=== PATIENT | female | born 1985 | race African-American/Black ===

== ENCOUNTER 2016-07-10 21:22 | Emergency (ER) | payer MEDICAID ==
[~2016-07-10] VITALS: Ht 157.5 cm; Wt 71.0 kg
[~2016-07-10 21:22] MED LIST: ALBUTEROL INHALER
[2016-07-10] MEDS ORDERED: SODIUM CHLORIDE 0.9% 1,000 ML IV ONE (21:37)
[2016-07-10] MEDS ORDERED: METHYLPREDNISOLONE SOD SUCC 125 MG/2 ML VIAL IV STA (21:37)
[2016-07-10] MEDS ORDERED: IPRATROPIUM BROMIDE (0.02%) 0.5MG/2.5ML NEB HHN STA (21:37)
[2016-07-10] MEDS ORDERED: MAGNESIUM 2 G PREMIX 50 ML IV ONE (21:45)
[2016-07-10 21:54] LABS: BASOPHILS % 0.4 % (0.0-2.0); DIFFERENTIAL COMMENT 0; EOSINOPHILS % 3.2 % (0.0-5.0); HEMATOCRIT. 38.4 % (36.0-48.0); HEMOGLOBIN. 12.4 g/dL (12.0-16.0); LYMPHOCYTES % 62.7 % (20.0-50.0); MEAN CORPUSCULAR HEMOGLOBIN 25.8 pg (28.0-32.0); MEAN CORPUSCULAR HGB CONC 32.3 g/dL (31.0-37.0); MEAN CORPUSCULAR VOLUME 79.8 fL (81.0-99.0); MEAN PLATELET VOLUME 8.2 fl (7.4-10.4); NEUTROPHILS % 27.7 % (40.0-76.0); PLATELET 217 x1000/uL (130-400); RED BLOOD CELL COUNT 4.81 mill/uL (4.2-5.4); RED CELL DISTRIBUTION WIDTH 14.5 % (11.6-14.6)
[2016-07-10 21:58] LABS: CHLORIDE 103 mEq/L (98-107); INDEX HEMOLYSI 1 (1-3); INDEX ICTERIC 1 (1-4); INDEX LIPEMIC 1 (1-3)
[2016-07-10 22:01] LABS: ALBUMIN 3.6 g/dL (3.4-5.0); ANION GAP 10; CALCIUM 8.6 mg/dL (8.5-10.1); CARBON DIOXIDE 28 mEq/L (21-32); UREA NITROGEN BLOOD 13 mg/dL (7-21)
[2016-07-10 22:03] LABS: D-DIMER 0.3 mg/L FEU (<0.50); PROTHROMBIN TIME 10.4 sec
[2016-07-10 22:04] LABS: HCG SCREEN NEGATIVE
[2016-07-10 22:06] LABS: ALANINE AMINOTRANSFERASE 35 IU/L (13-61); ETHANOL BLOOD < 10 mg/dL; eGFR > 60 mL/min (>60)
[2016-07-10 22:09] LABS: NT PRO B-TYPE NATRIURETIC PEP 24 pg/mL (5-125)
[2016-07-10] MEDS: ALBUTEROL (0.083%) 2.5MG/3ML NEB HHN SCH ×3 (22:26→23:40)
[2016-07-10 22:30] VITALS: BP 121/69
[2016-07-10 22:35] LABS: BG BASE EXCESS -0.2 mmol/L (-2.0-2.0); BG CARBOXYHEMOGLOBIN 0.3 % (0.5-1.5); BG DEOXYHEMOGLOBIN 1.7 % (0.0-5.0); BG FRACTION INSPIRED OXYGEN 21; BG METHEMOGLOBIN 0.1 % (0.0-1.5); BG OXYGEN SATURATION 98.3 % (92.0-98.5); BG OXYHEMOGLOBIN 97.9 % (94.0-97.0); BG PH 7.461 (7.350-7.450); BG PO2 118.8 mmHg (75.0-100.0); BG SAMPLE SITE RIGHT RADIAL; BG TOTAL HEMOGLOBIN 12.9 g/dL (12.0-18.0); BG VENT MODE ROOM AIR
== END 2016-07-11 00:20 | disposition home or self-care (01) ==
LOC: ER 21:38
DX: J45.901 Unspecified asthma with (acute) exacerbation (principal); B34.9 Viral infection, unspecified; J45.909 Unspecified asthma, uncomplicated; F17.210 Nicotine dependence, cigarettes, uncomplicated; Z79.899 Other long term (current) drug therapy
CPT/HCPCS: 36415; 36600; 71010; 80053; 82375; 82805; 83605; 83880; 84703; 85025; 85379; 85610; 87804; 93005; 96365; 96375; 99285; G0482; J2930; J3475; J7030; J7611; Z7610

== ENCOUNTER 2017-03-31 01:25 | Emergency (ER) | payer MEDICAID ==
[~2017-03-31] VITALS: Ht 154.9 cm; Wt 78.0 kg
[2017-03-31] MEDS ORDERED: IBUPROFEN 600MG TABLET PO ONE (06:30)
[2017-03-31 06:35] VITALS: BP 142/99
== END 2017-03-31 06:36 | disposition home or self-care (01) ==
LOC: ER 01:25
DX: S02.2XXA Fracture of nasal bones, initial encounter for closed fracture (principal); S01.511A Laceration without foreign body of lip, initial encounter; J45.909 Unspecified asthma, uncomplicated; F17.210 Nicotine dependence, cigarettes, uncomplicated; Z85.41 Personal history of malignant neoplasm of cervix uteri; Y04.0XXA Assault by unarmed brawl or fight, initial encounter; Y93.89 Activity, other specified; Y92.018 Other place in single-family (private) house as the place of occurrence of the external cause
CPT/HCPCS: 70486; 81025; 99284

== ENCOUNTER 2017-04-27 11:54 | Emergency (ER) | payer MEDICAID ==
[~2017-04-27] VITALS: Ht 154.9 cm; Wt 79.0 kg
[2017-04-27] MEDS ORDERED: IPRATROPIUM/ALBUTEROL 0.5-3(2.5)MG/3ML NEB HHN ONE (18:45)
[2017-04-27] MEDS ORDERED: KETOROLAC 60MG/2ML VIAL IM ONE (18:45)
[2017-04-27 21:46] VITALS: BP 130/80
== END 2017-04-27 21:48 | disposition home or self-care (01) ==
LOC: ER 11:54
DX: R07.89 Other chest pain (principal); R05 Cough; J45.909 Unspecified asthma, uncomplicated; F17.210 Nicotine dependence, cigarettes, uncomplicated; Z85.41 Personal history of malignant neoplasm of cervix uteri; Z98.890 Other specified postprocedural states
CPT/HCPCS: 71045; 93005; 94640; 96372; 99284; J1885; J7620

== ENCOUNTER 2017-10-22 23:13 | Emergency (ER) | payer MEDICAID ==
[~2017-10-22] VITALS: Ht 154.9 cm; Wt 81.0 kg
[2017-10-23] MEDS ORDERED: MORPHINE SULFATE 4 MG/ML CPJ (NOT FOR IM USE) IV STA (01:06)
[2017-10-23] MEDS ORDERED: ONDANSETRON 4MG ODT PO STA (01:06)
[2017-10-23 01:30] LABS: BASOPHILS % 0.7 % (0.0-2.0); EOSINOPHILS % 2.3 % (0.0-5.0); HEMATOCRIT. 39.5 % (36.0-48.0); HEMOGLOBIN. 12.8 g/dL (12.0-16.0); LYMPHOCYTES % 53.7 % (20.0-50.0); MEAN CORPUSCULAR HEMOGLOBIN 25.6 pg (28.0-32.0); MEAN CORPUSCULAR VOLUME 79.1 fL (81.0-99.0); MEAN PLATELET VOLUME 8.7 fl (7.4-10.4); MONOCYTES % 7.4 % (2.0-8.0); NEUTROPHILS % 35.9 % (40.0-76.0); PLATELET 254 x1000/uL (130-400); RED BLOOD CELL COUNT 4.99 mill/uL (4.2-5.4); RED CELL DISTRIBUTION WIDTH 14.4 % (11.6-14.6)
[2017-10-23 01:32] LABS: CLARITY URINE CLEAR (CLEAR); COLOR URINE YELLOW (YELLOW); KETONES URINE NEGATIVE (NEGATIVE); LEUKOCYTE ESTERASE URINE 1+ (NEGATIVE); NITRITE URINE NEGATIVE (NEGATIVE); OCCULT BLOOD URINE 3+ (NEGATIVE); PH URINE 5.5 (4.5-8.0); PROTEIN URINE TRACE (NEGATIVE); SPECIFIC GRAVITY URINE 1.033 (1.005-1.030)
[2017-10-23 01:33] LABS: CHLORIDE 105 mEq/L (98-107)
[2017-10-23 01:36] LABS: PROTHROMBIN TIME 10.4 sec (9.4-11.6)
[2017-10-23 05:38] VITALS: BP 106/65
== END 2017-10-23 06:13 | disposition home or self-care (01) ==
LOC: ER 23:13
DX: K80.70 Calculus of gallbladder and bile duct without cholecystitis without obstruction (principal); J45.909 Unspecified asthma, uncomplicated; F17.200 Nicotine dependence, unspecified, uncomplicated; F12.10 Cannabis abuse, uncomplicated
CPT/HCPCS: 36415; 76705; 80053; 81003; 83690; 85025; 85610; 87086; 93005; 96374; 99285; J2270; Q0162; Z7610

== ENCOUNTER 2017-11-17 12:22 | Emergency (ER) | payer MEDICAID ==
[~2017-11-17] VITALS: Ht 154.9 cm; Wt 81.0 kg
[2017-11-17 12:49] VITALS: BP 116/65
[2017-11-17 18:46] LABS: CLARITY URINE CLOUDY (CLEAR); COLOR URINE YELLOW (YELLOW); KETONES URINE NEGATIVE (NEGATIVE); LEUKOCYTE ESTERASE URINE TRACE (NEGATIVE); NITRITE URINE NEGATIVE (NEGATIVE); OCCULT BLOOD URINE NEGATIVE (NEGATIVE); PROTEIN URINE 1+ (NEGATIVE); SPECIFIC GRAVITY URINE 1.027 (1.005-1.030); UROBILINOGEN URINE 0.2 E.U./dL (0.2-1.0)
== END 2017-11-17 20:32 | disposition left against medical advice (07) ==
LOC: ER 12:22
DX: M54.6 Pain in thoracic spine (principal); R11.0 Nausea; J45.909 Unspecified asthma, uncomplicated; F17.200 Nicotine dependence, unspecified, uncomplicated; F12.10 Cannabis abuse, uncomplicated; Z90.49 Acquired absence of other specified parts of digestive tract
CPT/HCPCS: 81003; 81025; 99283; J7030; Z7610

== ENCOUNTER 2017-11-19 00:18 | Emergency (ER) | payer MEDICAID ==
[~2017-11-19] VITALS: Ht 154.9 cm; Wt 81.0 kg
[2017-11-19] MEDS ORDERED: KETOROLAC 30MG/ML VIAL IV STA (03:49)
[2017-11-19] MEDS ORDERED: SODIUM CHLORIDE 0.9% 1,000 ML IV ONE (03:49)
[2017-11-19 05:29] LABS: BASOPHILS % 0.2 % (0.0-2.0); EOSINOPHILS % 3.4 % (0.0-5.0); HEMATOCRIT. 40.9 % (36.0-48.0); HEMOGLOBIN. 13.4 g/dL (12.0-16.0); LYMPHOCYTES % 53.2 % (20.0-50.0); MEAN CORPUSCULAR HEMOGLOBIN 25.6 pg (28.0-32.0); MEAN CORPUSCULAR VOLUME 78.1 fL (81.0-99.0); MEAN PLATELET VOLUME 9.2 fl (7.4-10.4); MONOCYTES % 5.7 % (2.0-8.0); NEUTROPHILS % 37.5 % (40.0-76.0); PLATELET 260 x1000/uL (130-400); RED BLOOD CELL COUNT 5.23 mill/uL (4.2-5.4); RED CELL DISTRIBUTION WIDTH 14.1 % (11.6-14.6)
[2017-11-19 05:36] LABS: CHLORIDE 103 mEq/L (98-107); PROTHROMBIN TIME 10.5 sec (9.1-11.1)
[2017-11-19 05:45] LABS: CLARITY URINE CLOUDY (CLEAR); COLOR URINE DARK YELLOW (YELLOW); KETONES URINE TRACE (NEGATIVE); LEUKOCYTE ESTERASE URINE TRACE (NEGATIVE); NITRITE URINE NEGATIVE (NEGATIVE); OCCULT BLOOD URINE NEGATIVE (NEGATIVE); PH URINE 5.5 (4.5-8.0); PROTEIN URINE NEGATIVE (NEGATIVE); SPECIFIC GRAVITY URINE 1.025 (1.005-1.030)
[2017-11-19 06:06] LABS: HCG SCREEN NEGATIVE
[2017-11-19 08:10] VITALS: BP 96/72
== END 2017-11-19 11:21 | disposition home or self-care (01) ==
LOC: ER 00:37
DX: M62.838 Other muscle spasm (principal); R10.9 Unspecified abdominal pain
CPT/HCPCS: 36415; 74176; 80053; 81003; 81025; 83690; 84703; 85025; 85610; 96361; 96374; 99285; J1885; J7030; Z7610

== ENCOUNTER 2018-08-13 08:33 | Emergency (ER) | payer MEDICAID ==
[~2018-08-13] VITALS: Ht 154.9 cm; Wt 62.8 kg
[2018-08-13] MEDS ORDERED: KETOROLAC 60MG/2ML VIAL IM STA (08:51)
[2018-08-13] MEDS ORDERED: CEFTRIAXONE SODIUM 1 G/VIAL IM ONE (09:00)
[2018-08-13] MEDS ORDERED: LIDOCAINE HCL 1% 20ML VIAL (Pyxis) INJ INFIL ONE (09:00)
[2018-08-13 09:09] LABS: CLARITY URINE CLOUDY (CLEAR); COLOR URINE YELLOW (YELLOW); KETONES URINE NEGATIVE (NEGATIVE); LEUKOCYTE ESTERASE URINE 1+ (NEGATIVE); NITRITE URINE NEGATIVE (NEGATIVE); OCCULT BLOOD URINE NEGATIVE (NEGATIVE); PH URINE 5.5 (4.5-8.0); PROTEIN URINE NEGATIVE (NEGATIVE); SPECIFIC GRAVITY URINE 1.011 (1.005-1.030); UROBILINOGEN URINE 0.2 E.U./dL (0.2-1.0)
[2018-08-13 09:53] VITALS: BP 108/72
== END 2018-08-13 09:58 | disposition home or self-care (01) ==
LOC: ER 08:49
DX: N39.0 Urinary tract infection, site not specified (principal); K04.7 Periapical abscess without sinus; K02.9 Dental caries, unspecified; F17.200 Nicotine dependence, unspecified, uncomplicated; F12.10 Cannabis abuse, uncomplicated; J45.909 Unspecified asthma, uncomplicated; Z90.49 Acquired absence of other specified parts of digestive tract
CPT/HCPCS: 81003; 81025; 96372; 99283; J0696; J1885; J3490

== ENCOUNTER 2018-11-19 04:21 | Emergency (ER) | payer MEDICAID ==
[~2018-11-19] VITALS: Ht 154.9 cm; Wt 65.2 kg
[2018-11-19] MEDS ORDERED: HYDROCODONE/ACETAMINOPHEN 5/325MG TABLET PO ONE (05:00)
[2018-11-19 06:18] VITALS: BP 118/75
== END 2018-11-19 06:20 | disposition home or self-care (01) ==
LOC: ER 05:38
DX: K08.89 Other specified disorders of teeth and supporting structures (principal); R22.0 Localized swelling, mass and lump, head; F17.200 Nicotine dependence, unspecified, uncomplicated; F12.10 Cannabis abuse, uncomplicated; J45.909 Unspecified asthma, uncomplicated; Z90.49 Acquired absence of other specified parts of digestive tract
CPT/HCPCS: 99283

== ENCOUNTER 2019-04-18 08:32 | Emergency (ER) | payer OTHER, MEDICAID ==
[~2019-04-18] VITALS: Ht 154.9 cm; Wt 70.0 kg
[2019-04-18 08:47] VITALS: BP 125/92
== END 2019-04-18 10:20 | disposition left against medical advice (07) ==
LOC: ER 08:32
DX: Z53.21 Procedure and treatment not carried out due to patient leaving prior to being seen by health care provider (principal)

== ENCOUNTER 2019-10-28 06:46 | Emergency (ER) | payer MEDICAID, OTHER ==
[~2019-10-28] VITALS: Ht 154.9 cm; Wt 72.0 kg
[2019-10-28] MEDS ORDERED: IBUPROFEN 400MG TABLET PO ONE (08:45)
[2019-10-28 09:16] VITALS: BP 125/89
== END 2019-10-28 09:18 | disposition home or self-care (01) ==
LOC: ER 06:46
DX: M54.2 Cervicalgia (principal); J45.909 Unspecified asthma, uncomplicated; Z79.899 Other long term (current) drug therapy; Z98.890 Other specified postprocedural states; Z90.49 Acquired absence of other specified parts of digestive tract
CPT/HCPCS: 81025; 99282

== ENCOUNTER 2019-12-29 03:36 | Emergency (ER) | payer MEDICAID, OTHER ==
[~2019-12-29] VITALS: Ht 154.9 cm; Wt 75.0 kg
[2019-12-29] MEDS ORDERED: KETOROLAC 30MG/ML VIAL IM ONE (04:30)
[2019-12-29 04:59] VITALS: BP 147/92
== END 2019-12-29 05:01 | disposition home or self-care (01) ==
LOC: ER 03:36
DX: K04.7 Periapical abscess without sinus (principal); J45.909 Unspecified asthma, uncomplicated; Z90.49 Acquired absence of other specified parts of digestive tract
CPT/HCPCS: 96372; 99283; J1885

== ENCOUNTER 2019-12-30 01:19 | Emergency (ER) | payer MEDICAID ==
[~2019-12-30] VITALS: Ht 154.9 cm; Wt 76.0 kg
[2019-12-30] MEDS ORDERED: HYDROCODONE/ACETAMINOPHEN 5/325MG TABLET PO ONE (01:45)
[2019-12-30] MEDS ORDERED: KETOROLAC 30MG/ML VIAL IM ONE (01:45)
[2019-12-30 02:09] VITALS: BP 135/80
== END 2019-12-30 02:10 | disposition home or self-care (01) ==
LOC: ER 01:19
DX: K02.9 Dental caries, unspecified (principal); F12.10 Cannabis abuse, uncomplicated; J45.909 Unspecified asthma, uncomplicated; Z90.49 Acquired absence of other specified parts of digestive tract
CPT/HCPCS: 96372; 99283; J1885

== ENCOUNTER 2020-01-20 16:58 | Emergency (ER) | payer MEDICAID ==
[~2020-01-20] VITALS: Ht 154.9 cm; Wt 71.0 kg
[2020-01-20 17:17] VITALS: BP 143/89
[2020-01-20] MEDS ORDERED: KETOROLAC 30MG/ML VIAL IV ONE (18:15)
== END 2020-01-20 19:05 | disposition home or self-care (01) ==
LOC: ER 16:58
DX: K04.7 Periapical abscess without sinus (principal); F17.200 Nicotine dependence, unspecified, uncomplicated; F12.10 Cannabis abuse, uncomplicated; J45.909 Unspecified asthma, uncomplicated; Z98.890 Other specified postprocedural states
CPT/HCPCS: 96372; 99283; J1885

== ENCOUNTER 2020-03-05 11:08 | Emergency (ER) | payer MEDICAID ==
[~2020-03-05] VITALS: Ht 154.9 cm; Wt 72.0 kg
[2020-03-05] MEDS ORDERED: KETOROLAC 30MG/ML VIAL IM ONE (11:45)
[2020-03-05] MEDS ORDERED: CYCLOBENZAPRINE 10MG TABLET PO ONE (11:45)
[2020-03-05 11:50] VITALS: BP 120/86
== END 2020-03-05 12:24 | disposition home or self-care (01) ==
LOC: ER 11:08
DX: M25.512 Pain in left shoulder (principal); M54.2 Cervicalgia; F12.90 Cannabis use, unspecified, uncomplicated
CPT/HCPCS: 96372; 99283; J1885

== ENCOUNTER 2020-03-28 03:23 | Emergency (ER) | payer MEDICAID ==
[2020-03-28] MEDS ORDERED: HYDROCODONE/ACETAMINOPHEN 5/325MG TABLET PO ONE (04:45)
[2020-03-28 06:45] VITALS: BP 133/77
== END 2020-03-28 06:48 | disposition home or self-care (01) ==
LOC: ER 03:23
DX: M54.2 Cervicalgia (principal); M25.512 Pain in left shoulder; J45.909 Unspecified asthma, uncomplicated; F12.10 Cannabis abuse, uncomplicated; Z90.49 Acquired absence of other specified parts of digestive tract
CPT/HCPCS: 72040; 73030; 81025; 99284; Z7610; A4565

== ENCOUNTER 2020-11-19 14:31 | Emergency (ER) | payer MEDICAID, OTHER ==
[~2020-11-19] VITALS: Ht 154.9 cm; Wt 63.0 kg
[2020-11-19 21:36] LABS: BASOPHILS % 0.5 % (0.0-2.0); EOSINOPHILS % 1.5 % (0.0-5.0); HEMATOCRIT. 38.6 % (36.0-48.0); HEMOGLOBIN. 12.7 g/dL (12.0-16.0); LYMPHOCYTES % 53.4 % (20.0-50.0); MEAN CORPUSCULAR HEMOGLOBIN 26.5 pg (28.0-32.0); MEAN CORPUSCULAR VOLUME 80.5 fL (81.0-99.0); MEAN PLATELET VOLUME 8.3 fl (7.4-10.4); MONOCYTES % 7.7 % (2.0-8.0); NEUTROPHILS % 36.9 % (40.0-76.0); PLATELET 236 x1000/uL (130-400); RED BLOOD CELL COUNT 4.79 mill/uL (4.2-5.4); RED CELL DISTRIBUTION WIDTH 14.3 % (11.6-14.6)
[2020-11-19 21:42] LABS: CHLORIDE 107 mEq/L (98-107)
[2020-11-19 21:46] LABS: HCG SCREEN NEGATIVE
[2020-11-19] MEDS ORDERED: IBUP-2029 MT (22:46)
[2020-11-19 22:51] VITALS: BP 112/83
== END 2020-11-19 22:53 | disposition home or self-care (01) ==
LOC: ER 14:31
DX: R07.89 Other chest pain (principal); J45.909 Unspecified asthma, uncomplicated; Z90.49 Acquired absence of other specified parts of digestive tract
CPT/HCPCS: 36415; 71045; 80053; 81025; 83880; 84484; 84703; 85025; 93005; 99285

== ENCOUNTER 2020-12-01 11:35 | Emergency (ER) | payer MEDICAID, OTHER ==
[~2020-12-01] VITALS: Ht 167.6 cm; Wt 67.0 kg
[~2020-12-01 11:35] MED LIST changes: +IBUP-2029 MT
[2020-12-01] MEDS ORDERED: MORPHINE SULFATE 4 MG/ML CPJ (NOT FOR IM USE) IV STA (12:27)
[2020-12-01] MEDS ORDERED: SODIUM CHLORIDE 0.9% 1,000 ML IV ONE (12:30)
[2020-12-01 12:38] LABS: BASOPHILS % 0.6 % (0.0-2.0); EOSINOPHILS % 1.4 % (0.0-5.0); HEMATOCRIT. 40.6 % (36.0-48.0); HEMOGLOBIN. 13.6 g/dL (12.0-16.0); LYMPHOCYTES % 65.4 % (20.0-50.0); MEAN CORPUSCULAR HEMOGLOBIN 26.7 pg (28.0-32.0); MEAN CORPUSCULAR VOLUME 79.8 fL (81.0-99.0); MEAN PLATELET VOLUME 8.2 fl (7.4-10.4); MONOCYTES % 7.5 % (2.0-8.0); NEUTROPHILS % 25.1 % (40.0-76.0); PLATELET 368 x1000/uL (130-400); RED BLOOD CELL COUNT 5.09 mill/uL (4.2-5.4); RED CELL DISTRIBUTION WIDTH 14.2 % (11.6-14.6)
[2020-12-01 12:45] LABS: CHLORIDE 105 mEq/L (98-107)
[2020-12-01] MEDS ORDERED: ONDANSETRON HCL 4MG/2ML INJ IV ONE (13:15)
[2020-12-01] MEDS ORDERED: MAGNESIUM 1 G PREMIX 100 ML IV ONE (13:15)
[2020-12-01] MEDS ORDERED: ACET-2708 MT (15:20)
[2020-12-01 15:44] VITALS: BP 100/71
== END 2020-12-01 15:45 | disposition home or self-care (01) ==
LOC: ER 11:35
DX: R07.89 Other chest pain (principal); R00.0 Tachycardia, unspecified; I45.81 Long QT syndrome; Z85.41 Personal history of malignant neoplasm of cervix uteri
CPT/HCPCS: 36415; 71045; 80053; 81025; 83735; 84484; 85025; 85379; 93005; 96365; 96375; 99285; J2270; J2405; J3475; J7030

== ENCOUNTER 2021-04-19 19:12 | Emergency (ER) | payer MEDICAID, OTHER ==
[~2021-04-19] VITALS: Ht 154.9 cm; Wt 70.6 kg
[~2021-04-19 19:12] MED LIST changes: +ACET-2708 MT
[2021-04-19] MEDS ORDERED: IPRATROPIUM BROMIDE (0.02%) 0.5MG/2.5ML NEB HHN STA (22:39)
[2021-04-20] MEDS ORDERED: ALBUTEROL 6.7GM HFA INHALER ORI PRN (00:15)
[2021-04-20 00:35] LABS: CHLORIDE 105 mEq/L (98-107)
[2021-04-20 00:37] LABS: BASOPHILS % 0.6 % (0.0-2.0); EOSINOPHILS % 3.5 % (0.0-5.0); HEMOGLOBIN. 12.3 g/dL (12.0-16.0); LYMPHOCYTES % 47.8 % (20.0-50.0); MEAN CORPUSCULAR HEMOGLOBIN 25.6 pg (28.0-32.0); MEAN CORPUSCULAR VOLUME 81.5 fL (81.0-99.0); MEAN PLATELET VOLUME 8.6 fl (7.4-10.4); NEUTROPHILS % 39.1 % (40.0-76.0); PLATELET 255 x1000/uL (130-400); RED BLOOD CELL COUNT 4.78 mill/uL (4.2-5.4); RED CELL DISTRIBUTION WIDTH 15.3 % (11.6-14.6)
[2021-04-20] MEDS: ALBUTEROL (0.083%) 2.5MG/3ML NEB HHN SCH ×2 (00:48→00:49)
[2021-04-20] MEDS ORDERED: ACETAMINOPHEN 325MG TABLET PO ONE (03:30)
[2021-04-20] MEDS ORDERED: ALBU18HF2 IH (03:34)
[2021-04-20 04:30] VITALS: BP 132/79
== END 2021-04-20 04:30 | disposition home or self-care (01) ==
LOC: ER 19:12
DX: J45.901 Unspecified asthma with (acute) exacerbation (principal); B34.9 Viral infection, unspecified; Z90.49 Acquired absence of other specified parts of digestive tract; Z20.822 Contact with and (suspected) exposure to COVID-19
CPT/HCPCS: 36415; 71045; 80053; 83880; 84484; 85025; 87426; 93005; 99284; C9803; U0003; U0005